=== PATIENT | female | born 1935 | race Caucasian/White ===

== ENCOUNTER → 2019-06-17 08:51 | Day surgery (SDC) | payer MEDICARE, BC ==
[~2019-06-17 08:51] MED LIST: Atenolol TAB* 25 MG PO ONE; Clopidogrel TAB* 75 MG ONE; Flumazenil* 0.1 MG/ML 5 ML MDV ONE; Heparin 2 UNITS/ML IVPREMIX* 3,000 UNIT/1,500 ML BAG IV ONE; Heparin(*) 1000 UNIT/ML 10 ML VIAL CATH LAB IV ONE; Hydrochlorothiazide TAB* 25 MG PO ONE; Iodixanol 320 (CONTRAST) 100 ML SDV ONE; Iohexol 350 (CONTRAST) 200 ML MDV IV ONE; LORazepam TAB(*) 1 MG ONE; Lidocaine 1% INJ* 10 MG/ML 30 ML SDV ONE; Lisinopril TAB* 10 MG PO ONE; Metoprolol Tartrate IV* 1 MG/ML 5 ML VIAL ONE; Midazolam* 1 MG/ML 5 ML VIAL (5 MG) ONE; Naloxone* 0.4 MG/ML 1 ML VIAL ONE; ceFAZolin 1 GM* X ONE DOSE (AddVan) IVPB; fentaNYL* 50 MCG/ML 2 ML VIAL (100 MCG VIAL) ONE
[2019-06-17 09:57] LABS: ABS Eosinophils 0.2 10^3/ul (0-0.6); ABS Lymphocytes 2.2 10^3/ul (1.0-4.8); ABS Monocytes 0.9 10^3/ul (0-0.8); ABS Neutrophils 5.2 10^3/ul (1.5-7.7); Eosinophil % 1.8 %; Hematocrit 45 % (35-47); Hemoglobin 15.1 g/dL (12.0-16.0); Lymphocyte % 26.1 %; Mean Corpuscular HGB Conc 34 g/dL (31-36); Mean Corpuscular Hemoglobin 30 pg (27-31); Mean Corpuscular Volume 87 fL (80-97); Mean Platelet Volume 10.2 fL (7.4-10.4); Nucleated Red Blood Cells % 0.1; Platelet Count 209 10^3/uL (150-450); Red Cell Distribution Width 14 % (10-15); White Blood Count 8.5 10^3/uL (3.5-10.8)
[2019-06-17 10:20] LABS: Activated Partial Thrombo Time 35.4 seconds (26.0-38.0); INR 1.04 (0.82-1.09)
[2019-06-17 10:42] LABS: BUN/Creatinine Ratio 16.1 (8-20); Calcium 10.1 mg/dL (8.6-10.3); EGFR African American 69.5 (>60); EGFR Non-African American 57.4 (>60); Potassium 3.6 mmol/L (3.5-5.0)
--- NOTE | 2019-06-17 15:50 | PN ---
Progress Note - Progress Note Date of Service: 06/17/19 SOAP: Subjective: Patient denies abdomen or pelvic pain. Patient denies rest pain in left leg. Denies pain at arteriotomy site. No SOB or CP. 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 Plan: 1. Plavix 75 mg PO every other day x 6 months. 2. Resume Xarelto tomorrow, 06/18/19 3. Routine IR follow up will include RN call in 1 or 4 days and clinic visit & TERESA in 1 month.
[2019-06-17 15:57] VITALS: BP 168/65
== END | disposition home or self-care (01) ==
LOC: CHICATH 08:51
PROVIDERS: ATTEND Radiology Diagnostic Radiology
DX: I70.213 Atherosclerosis of native arteries of extremities with intermittent claudication, bilateral legs (principal); I10 Essential (primary) hypertension; E03.9 Hypothyroidism, unspecified; M51.37 Other intervertebral disc degeneration, lumbosacral region; M48.07 Spinal stenosis, lumbosacral region; Z79.899 Other long term (current) drug therapy
CPT/HCPCS: 36415; 76937; 80048; 85025; 85347; 85610; 85730; 99156; 99157; A9270-GY; C1725; C1760; C1769; C1876; C1887; C1894; J0690; J1644; J2250; J2310; J3010; J3490

== ENCOUNTER 2020-11-20 11:09 | Inpatient (IN) ==
[2020-11-20 15:48] LABS: Hematocrit 37 % (35-47); Hemoglobin 11.9 g/dL (12.0-16.0); Mean Corpuscular HGB Conc 33 g/dL (31-36); Mean Corpuscular Hemoglobin 28 pg (27-31); Mean Corpuscular Volume 87 fL (80-97); Mean Platelet Volume 9.8 fL (7.4-10.4); Platelet Count 324 10^3/uL (150-450); Red Blood Count 4.24 10^6 /uL (3.70-4.87); Red Cell Distribution Width 14 % (10-15); White Blood Count 20.6 10^3/uL (3.5-10.8)
[2020-11-20 16:35] LABS: ALT 6 U/L (7-52); AST 16 U/L (13-39); Albumin 3.4 g/dL (3.2-5.2); Albumin/Globulin Ratio 1.2 (1-3); Alkaline Phosphatase 57 U/L (34-104); Anion Gap 12 mmol/L (2-11); BUN/Creatinine Ratio 10.5 (8-20); Blood Urea Nitrogen 15 mg/dL (6-24); C Reactive Protein 164.78 mg/L (<8.01); CO2 Carbon Dioxide 24 mmol/L (22-32); Calcium 9.5 mg/dL (8.6-10.3); Chloride 94 mmol/L (101-111); EGFR African American 42.1 (>60); EGFR Non-African American 34.8 (>60); Globulin 2.9 g/dL (2-4); Glucose 188 mg/dL (70-100); Lipase < 10 U/L (11.0-82.0); Sodium 130 mmol/L (135-145); Total Protein 6.3 g/dL (6.4-8.9)
[2020-11-20] MEDS ORDERED: Iodixanol (CONTRAST) 320 MG/ML 100 ML SDV IV ONE (16:45)
[2020-11-20] MEDS ORDERED: Piperacillin/Tazobac ADVAN 3.375 GM in NS 0.9% 100 ml BAG 100 ML IV ONE (17:19)
[2020-11-20] MEDS ORDERED: NS 0.9% 1000 ml BAG 1,000 ML IV ONE (17:19)
[2020-11-20 17:33] LABS: ABS Basophils 0.1 10^3/ul (0-0.2); ABS Lymphocytes 1.2 10^3/ul (1.0-4.8); ABS Monocytes 1.9 10^3/ul (0-0.8); ABS Neutrophils 17.4 10^3/ul (1.5-7.7); Lymphocyte % 5.9 %; Nucleated Red Blood Cells % 0.1
[2020-11-20] MEDS ORDERED: Morphine 2 MG/ML SYRINGE IV PRN (18:42)
[2020-11-20] MEDS ORDERED: Ondansetron 4 mg VIAL 2 MG/ML 2 ml VIAL IV PRN (18:51)
[2020-11-20] MEDS ORDERED: Zosyn per Pharmacy NOTE FOLLOW UP SCH (19:00)
[2020-11-20] MEDS: NS 0.9% 1000 ml BAG 1,000 ML IV SCH (20:46)
[2020-11-20] MEDS: KCL 20 MEQ/100 ML IVPREMIX 20 MEQ/100 ML BAG IV SCH (20:46)
[2020-11-20] MEDS ORDERED: NS 0.9% 500 ml BAG 500 ML IV ONE ×2 (20:59→22:49)
[2020-11-21] MEDS: NS 0.9% 1000 ml BAG 1,000 ML IV SCH ×2 (01:27→20:49)
[2020-11-21] MEDS: KCL 20 MEQ/100 ML IVPREMIX 20 MEQ/100 ML BAG IV SCH (03:22)
[2020-11-21] MEDS ORDERED: KCL 20 MEQ/100 ML IVPREMIX 20 MEQ/100 ML BAG IV ONE ×2 (03:30→09:10)
[2020-11-21 05:11] LABS: Hematocrit 34 % (35-47); Hemoglobin 11.2 g/dL (12.0-16.0); Mean Corpuscular HGB Conc 33 g/dL (31-36); Mean Corpuscular Hemoglobin 28 pg (27-31); Mean Corpuscular Volume 85 fL (80-97); Mean Platelet Volume 9.8 fL (7.4-10.4); Platelet Count 271 10^3/uL (150-450); Red Blood Count 3.99 10^6 /uL (3.70-4.87); Red Cell Distribution Width 14 % (10-15); White Blood Count 18.6 10^3/uL (3.5-10.8)
[2020-11-21 05:42] LABS: BUN/Creatinine Ratio 15.8 (8-20); Calcium 8.4 mg/dL (8.6-10.3); EGFR African American 54.7 (>60); EGFR Non-African American 45.2 (>60); Potassium 2.8 mmol/L (3.5-5.0)
[2020-11-21] MEDS ORDERED: ZOSYN 3.375 GM Q12H per EXTENDED INFUSION IV SCH (06:00)
[2020-11-21 06:31] LABS: ABS Basophils 0.1 10^3/ul (0-0.2); ABS Lymphocytes 1.3 10^3/ul (1.0-4.8); ABS Monocytes 2.2 10^3/ul (0-0.8); ABS Neutrophils 15.1 10^3/ul (1.5-7.7)
[2020-11-21] MEDS ORDERED: Potassium Chlor 20 meq TAB.ER PO ONE (08:18)
[2020-11-21 08:44] LABS: Magnesium 1.3 mg/dL (1.9-2.7)
[2020-11-21] MEDS: Isosorbide Mononit ER 30mg TAB PO SCH (09:55)
[2020-11-21] MEDS: Collagenase 250 units/gm OINT 1 tube TOPICAL SCH (10:05)
[2020-11-21] MEDS: Magnesium Sulfate IV 3 GM in NS 0.9% 100 ml BAG 100 ML IVPB ONE ×2 (11:12→15:35)
[2020-11-21 14:46] LABS: BUN/Creatinine Ratio 17.9 (8-20); Calcium 8.1 mg/dL (8.6-10.3); EGFR African American 59.5 (>60); EGFR Non-African American 49.2 (>60); Magnesium 1.2 mg/dL (1.9-2.7); Potassium 4.4 mmol/L (3.5-5.0)
[2020-11-21] MEDS ORDERED: Magnesium Sulfate 2 gm BAG 2 GM/50 ML BAG IVPB ONE (17:25)
[2020-11-21] MEDS ORDERED: DULoxetine DR 30 mg CAP PO ONE (17:44)
[2020-11-21] MEDS: Multivitamins ADULT w/MIN LIQ 15 ML UDC PO SCH (17:52)
[2020-11-21] MEDS: Cholecalciferol (VIT D3) 1,000 unit TAB PO SCH (17:53)
[2020-11-22 06:11] LABS: Hematocrit 33 % (35-47); Hemoglobin 10.5 g/dL (12.0-16.0); Mean Corpuscular HGB Conc 32 g/dL (31-36); Mean Corpuscular Hemoglobin 28 pg (27-31); Mean Corpuscular Volume 86 fL (80-97); Mean Platelet Volume 9.7 fL (7.4-10.4); Platelet Count 290 10^3/uL (150-450); Red Blood Count 3.79 10^6 /uL (3.70-4.87); Red Cell Distribution Width 14 % (10-15); White Blood Count 17.8 10^3/uL (3.5-10.8)
[2020-11-22 06:32] LABS: Calcium 8.2 mg/dL (8.6-10.3); EGFR Non-African American 47.1 (>60); Magnesium 2.8 mg/dL (1.9-2.7); Potassium 3.3 mmol/L (3.5-5.0)
[2020-11-22] MEDS ORDERED: Potassium Chlor 20 meq TAB.ER PO ONE (08:48)
[2020-11-22] MEDS: Cholecalciferol (VIT D3) 1,000 unit TAB PO SCH (09:18)
[2020-11-22] MEDS: Isosorbide Mononit ER 30mg TAB PO SCH (09:19)
[2020-11-22] MEDS: Multivitamins ADULT w/MIN LIQ 15 ML UDC PO SCH (09:24)
[2020-11-22] MEDS: Collagenase 250 units/gm OINT 1 tube TOPICAL SCH (09:29)
[2020-11-22] MEDS: NS 0.9% 1000 ml BAG 1,000 ML IV SCH (11:28)
[2020-11-23] MEDS: NS 0.9% 1000 ml BAG 1,000 ML IV SCH (00:10)
[2020-11-23 06:03] LABS: Hematocrit 32 % (35-47); Hemoglobin 10.1 g/dL (12.0-16.0); Mean Corpuscular HGB Conc 32 g/dL (31-36); Mean Corpuscular Hemoglobin 28 pg (27-31); Mean Corpuscular Volume 87 fL (80-97); Mean Platelet Volume 9.8 fL (7.4-10.4); Platelet Count 270 10^3/uL (150-450); Red Blood Count 3.65 10^6 /uL (3.70-4.87); Red Cell Distribution Width 14 % (10-15)
[2020-11-23 06:25] LABS: BUN/Creatinine Ratio 19.3 (8-20); Calcium 7.9 mg/dL (8.6-10.3); EGFR African American 78.9 (>60); EGFR Non-African American 65.2 (>60); Magnesium 2.2 mg/dL (1.9-2.7); Potassium 3.9 mmol/L (3.5-5.0)
[2020-11-23 08:34] VITALS: BP 150/69
[2020-11-23] MEDS: Multivitamins ADULT w/MIN LIQ 15 ML UDC PO SCH (09:24)
[2020-11-23] MEDS: Cholecalciferol (VIT D3) 1,000 unit TAB PO SCH (09:25)
[2020-11-23] MEDS: Isosorbide Mononit ER 30mg TAB PO SCH (09:26)
[2020-11-23] MEDS: Collagenase 250 units/gm OINT 1 tube TOPICAL SCH (10:50)
== END 2020-11-23 12:02 | disposition home health service (06) | DRG 872 ==
LOC: ED 11:09 → SSU 18:51
PROVIDERS: ADMIT Hospitalist; ATTEND Internal Medicine

== ENCOUNTER 2024-03-03 17:36 | Inpatient (IN) ==
[2024-03-03 18:09] LABS: ABS Basophils 0.1 10^3/uL (0.0-0.1); ABS Lymphocytes 1.7 10^3/uL (1.0-4.8); ABS Monocytes 0.7 10^3/uL (0.0-0.9); ABS Neutrophils 15.1 10^3/uL (1.5-7.6); ABS Nucleated RBC 0.04 10^3/ul; Eosinophil % 0.2 %; Hematocrit 49.4 % (35-45); Hemoglobin 16.5 g/dL (11.5-14.3); Lymphocyte % 9.5 %; Mean Corpuscular Hemoglobin 28.8 pg (27-33); Mean Corpuscular Hgb Conc 33.3 g/dL (31-36); Mean Corpuscular Volume 86.5 fL (80-97); Mean Platelet Volume 9.8 fL (7.5-11.2); Nucleated Red Blood Cells % 0.2 %/100WBC (0.0-0.8); Platelet Count 251 10^3/uL (150-450); Red Blood Count 5.71 10^6/uL (3.63-4.92); Red Cell Distribution Width 14.1 % (12-17); White Blood Count 17.6 10^3/uL (3.8-11.8)
[2024-03-03] MEDS: Iodixanol (CONTRAST) 320 MG/ML 100 ML SDV IV ONE (18:25)
[2024-03-03 18:31] LABS: Activated Partial Thrombo Time 29.6 seconds (26.0-38.0); INR 1.02 (0.83-1.13)
[2024-03-03 18:51] LABS: PCO2 Arterial 37 mmHg (35-45); PO2 Arterial 292 mmHg (80-100)
[2024-03-03 18:52] LABS: Albumin 4.8 g/dL (3.2-5.2); Albumin/Globulin Ratio 1.5 (1-3); Calcium 10.5 mg/dL (8.6-10.3); Creatinine, Serum 1.11 mg/dL (0.51-0.95); Direct Bilirubin 0.1 mg/dL (0.03-0.18); Globulin 3.3 g/dL (2-4); HDL Cholesterol 61.4 mg/dL; Indirect Bilirubin 0.6 mg/dL (0.3-1.0); Potassium 5.2 mmol/L (3.5-5.0); Total Bilirubin 0.7 mg/dL (0.2-1.0); Total Protein 8.1 g/dL (6.4-8.9); eGFR CKD-EPI 47.5 (>60)
[2024-03-03] MEDS: Propofol 10 mg/ml 100 ML BTL 1,000 MG/100 ML BTL IV SCH (19:00)
[2024-03-03] MEDS: Midazolam PREMIXBAG 1 MG/ML NS 100 ML IV SCH (19:07)
[2024-03-03] MEDS: levETIRAcetam 1000MG IVPREMIX 1,000 MG/100 ML BAG IVPB ONE ×2 (19:08→19:28)
[2024-03-03] MEDS: Etomidate 20 mg/10 ml 2 MG/ML 10 ml VIAL IV ONE (19:26)
[2024-03-03] MEDS: Succinylcholine 200 mg VIAL 20 mg/ml 10 ml VIAL (200 mg) IV ONE (19:26)
[2024-03-03] MEDS: Midazolam 2 mg/2 ml VIAL 1 mg/ml 2 ml VIAL (2 mg) IV SLOW PU ONE (19:26)
[2024-03-03] MEDS: Piperacillin/Tazobac 3.375 BAG 3.375 GM/100 ML BAG IV ONE (19:33)
[2024-03-03 20:09] LABS: Urine Appearance Clear; Urine Bilirubin Negative (Negative); Urine Blood Trace (Negative); Urine Color Colorless; Urine Glucose 2+ (>=150 mg/dL) (Negative); Urine Ketones Negative (Negative); Urine Nitrite Negative (Negative); Urine Protein Trace (Negative); Urine Specific Gravity 1.038 (1.002-1.030); Urine Urobilinogen Negative (Negative); Urine pH 6.5 (5.0-8.0)
[2024-03-03] MEDS: Lactated Ringers 1000 ml BAG 1,000 ML IV ONE (20:09)
[2024-03-04 02:43] LABS: Hematocrit 43.6 % (35-45); Hemoglobin 14.4 g/dL (11.5-14.3); Mean Corpuscular Hemoglobin 28.6 pg (27-33); Mean Corpuscular Hgb Conc 33.1 g/dL (31-36); Mean Corpuscular Volume 86.4 fL (80-97); Mean Platelet Volume 9.9 fL (7.5-11.2); Platelet Count 229 10^3/uL (150-450); Red Blood Count 5.05 10^6/uL (3.63-4.92); Red Cell Distribution Width 14.1 % (12-17); White Blood Count 19.2 10^3/uL (3.8-11.8)
[2024-03-04 03:02] LABS: Calcium 9.1 mg/dL (8.6-10.3); Creatinine, Serum 0.91 mg/dL (0.51-0.95); Magnesium 1.7 mg/dL (1.9-2.7); Potassium 3.6 mmol/L (3.5-5.0); eGFR CKD-EPI 60.3 (>60)
[2024-03-04 03:26] LABS: ABS Lymphocytes 1.2 10^3/uL (1.0-4.8); ABS Monocytes 1.6 10^3/uL (0.0-0.9); ABS Neutrophils 16.4 10^3/uL (1.5-7.6); ABS Nucleated RBC 0.01 10^3/ul
[2024-03-04] MEDS: Chlorhexidine MOUTHWASH 0.12% 15 ML UDC TOPICAL SCH (05:06)
[2024-03-04 05:50] LABS: ABS Basophils 0.2 10^3/uL (0.0-0.1); ABS Lymphocytes 1.3 10^3/uL (1.0-4.8); ABS Monocytes 1.5 10^3/uL (0.0-0.9); ABS Neutrophils 14.3 10^3/uL (1.5-7.6); Eosinophil % 0.1 %; Hematocrit 43.4 % (35-45); Hemoglobin 14.4 g/dL (11.5-14.3); Lymphocyte % 7.6 %; Mean Corpuscular Hemoglobin 28.5 pg (27-33); Mean Corpuscular Hgb Conc 33.1 g/dL (31-36); Mean Corpuscular Volume 86.1 fL (80-97); Mean Platelet Volume 9.5 fL (7.5-11.2); Platelet Count 204 10^3/uL (150-450); Red Blood Count 5.04 10^6/uL (3.63-4.92); Red Cell Distribution Width 14.3 % (12-17); White Blood Count 17.3 10^3/uL (3.8-11.8)
[2024-03-04] MEDS ORDERED: Zosyn per Pharmacy NOTE FOLLOW UP SCH (06:00)
[2024-03-04] MEDS: Enoxaparin 80 MG/0.8 ML SYR SUBCUT SCH (06:21)
[2024-03-04] MEDS: Lactated Ringers 1000 ml BAG 1,000 ML IV SCH (06:21)
[2024-03-04 06:22] LABS: Albumin 3.6 g/dL (3.2-5.2); Albumin/Globulin Ratio 1.4 (1-3); Calcium 9.2 mg/dL (8.6-10.3); Creatinine, Serum 0.87 mg/dL (0.51-0.95); Globulin 2.5 g/dL (2-4); Magnesium 1.8 mg/dL (1.9-2.7); Potassium 3.7 mmol/L (3.5-5.0); Total Bilirubin 0.8 mg/dL (0.2-1.0); Total Protein 6.1 g/dL (6.4-8.9); eGFR CKD-EPI 63.6 (>60)
[2024-03-04] MEDS: Magnesium Sulfate 2 gm BAG 2 GM/50 ML BAG IVPB ONE (06:32)
[2024-03-04] MEDS: ZOSYN 3.375 GM x ONE DOSE over 30 miuntes IV (06:46)
[2024-03-04 06:52] LABS: TSH Ultra Thyroid Stim Horm 11.98 mcIU/mL (0.34-5.60)
[2024-03-04 06:54] LABS: Free T4 0.82 ng/dL (0.61-1.12)
[2024-03-04] MEDS: levETIRAcetam IV 750 MG in NS 0.9% 100 ml BAG 100 ML IVPB SCH (07:36)
[2024-03-04] MEDS: Pantoprazole VIAL 40 MG VIAL IV SCH (09:35)
[2024-03-04] MEDS: Magnesium Sulfate IV 1GM/100ML 1 GM/100 ML BAG IV ONE (09:36)
[2024-03-04] MEDS: ZOSYN 3.375 GM Q8H per EXTENDED INFUSION IV SCH (10:52)
[2024-03-04] MEDS: hydrALAZINE 20 mg/ml 1 ML Vial IV IV SLOW PU ONE (16:44)
[2024-03-05 04:35] LABS: ABS Lymphocytes 1.5 10^3/uL (1.0-4.8); ABS Monocytes 1.1 10^3/uL (0.0-0.9); ABS Neutrophils 8.8 10^3/uL (1.5-7.6); ABS Nucleated RBC 0.01 10^3/ul; Eosinophil % 0.1 %; Hematocrit 37.3 % (35-45); Hemoglobin 12.3 g/dL (11.5-14.3); Lymphocyte % 13.2 %; Mean Corpuscular Hemoglobin 28.4 pg (27-33); Mean Corpuscular Hgb Conc 33.1 g/dL (31-36); Mean Corpuscular Volume 85.9 fL (80-97); Mean Platelet Volume 9.7 fL (7.5-11.2); Nucleated Red Blood Cells % 0.1 %/100WBC (0.0-0.8); Platelet Count 159 10^3/uL (150-450); Red Blood Count 4.34 10^6/uL (3.63-4.92); White Blood Count 11.5 10^3/uL (3.8-11.8)
[2024-03-05 05:10] LABS: Calcium 8.1 mg/dL (8.6-10.3); Creatinine, Serum 0.85 mg/dL (0.51-0.95); Magnesium 1.9 mg/dL (1.9-2.7); Potassium 3.5 mmol/L (3.5-5.0); eGFR CKD-EPI 65.4 (>60)
[2024-03-05] MEDS: Magnesium Sulfate IV 1GM/100ML 1 GM/100 ML BAG IV ONE (08:34)
[2024-03-05] MEDS: hydrALAZINE 20 mg/ml 1 ML Vial IV IV SLOW PU PRN (10:25)
[2024-03-05] MEDS: KCL 20 MEQ/100 ML IVPREMIX 20 MEQ/100 ML BAG IV ONE (15:13)
[2024-03-05] MEDS: Midazolam 5 mg/5 ml VIAL 1 mg/ml 5 ml VIAL (5 mg) IV SLOW PU ONE (22:19)
[2024-03-05] MEDS: Gadoteridol (CONTRAST) 279.3 MG/ML 10 ML IV ONE (23:51)
[2024-03-06 05:22] LABS: Calcium 8.2 mg/dL (8.6-10.3); Creatinine, Serum 0.98 mg/dL (0.51-0.95); Potassium 3.6 mmol/L (3.5-5.0); eGFR CKD-EPI 55.2 (>60)
[2024-03-06] MEDS: Midazolam 5 mg/5 ml VIAL 1 mg/ml 5 ml VIAL (5 mg) IV SLOW PU ONE (08:40)
[2024-03-06] MEDS ORDERED: fentaNYL 100 mcg/2 ml 50 MCG/ML VIAL IV SLOW PU PRN (08:48)
[2024-03-06] MEDS ORDERED: Haloperidol 5 mg/ml SDV IV/IM 5 MG/ML AMP IV SLOW PU PRN (10:43)
[2024-03-06] MEDS ORDERED: Ondansetron 4 mg VIAL 2 MG/ML 2 ml VIAL IV PRN (10:43)
[2024-03-06] MEDS: Midazolam 2 mg/2 ml VIAL 1 mg/ml 2 ml VIAL (2 mg) IV SLOW PU PRN (11:38)
[2024-03-06] MEDS: Morphine PCA ADULT 5 MG/ML 30 ML PCA SCH (12:19)
[2024-03-06] MEDS: Atropine 1% (ORAL/SL) 15 ML BTL SL PRN (13:41)
[2024-03-06 17:33] VITALS: BP 95/84
== END 2024-03-07 08:00 | disposition expired | DRG 64 ==
LOC: ED 17:36 → EDHOLD 20:00 → ICU 20:39 → SSU 03-06 16:28
PROVIDERS: ADMIT Surgery Surgical Critical Care; ATTEND Internal Medicine